=== PATIENT | female | born 1955 | race African-American/Black ===

== ENCOUNTER → 2016-12-29 | Outpatient (CLI) | payer BC ==
[2016-12-29 09:34] LABS: ANION GAP 14 (5-19); BLOOD UREA NITROGEN 12 mg/dL (7-20); CALCIUM 10.3 mg/dL (8.4-10.2); CARBON DIOXIDE 26 mmol/L (22-30); CHLORIDE 110 mmol/L (98-107); CREATININE RESULT 0.93 mg/dL (0.52-1.25); GLUCOSE 99 mg/dL (75-110); POTASSIUM 3.9 mmol/L (3.6-5.0); SODIUM 150.3 mmol/L (137-145)
[2016-12-31 11:40] LABS: CREATININE URINE 80.4 mg/dL (Not Estab.)
== END ==
LOC: LAB 07:18
PROVIDERS: ATTEND Internal Medicine Nephrology
DX: R80.9 Proteinuria, unspecified (principal); I10 Essential (primary) hypertension
CPT/HCPCS: 36415; 80048; 82570; 84156

== ENCOUNTER 2017-01-17 19:38 | Emergency (ER) | payer BC ==
[2017-01-17] MEDS ORDERED: DIPH/PERTUSS(ACELL)/TETANUS VAC/PF 0.5 ML SYR (>=10YO) IM ONE (20:12)
[2017-01-17 21:16] VITALS: BP 123/79
--- NOTE | 2017-01-17 21:17 | ER Document Report ---
HPI - HPI Patient complains to provider of: laceration Pain Level: 3 Context: Patient is a 61-year-old female presents emergency Department with a left hand injury. Patient states that she was cutting brownies when the knife slipped and landed on the left palmar aspect of her hand. Tetanus is not up-to-date. Minimal bleeding. - REPRODUCTIVE LMP: na - DERM Skin Color: Normal Past Medical History - Social History Smoking Status: Unknown if Ever Smoked Family History: Reviewed & Not Pertinent Patient has suicidal ideation: No Patient has homicidal ideation: No - Past Medical History Cardiac Medical History: Reports: Hx Hypertension Denies: Hx Coronary Artery Disease, Hx Heart Attack Pulmonary Medical History: Reports: Hx Asthma, Hx Bronchitis, Hx COPD Denies: Hx Pneumonia Neurological Medical History: Denies: Hx Cerebrovascular Accident, Hx Seizures Renal/ Medical History: Denies: Hx Peritoneal Dialysis Musculoskeltal Medical History: Reports Hx Arthritis Past Surgical History: Denies: Hx Hysterectomy - Immunizations Hx Diphtheria, Pertussis, Tetanus Vaccination: - UNSURE Vertical Provider Document - CONSTITUTIONAL Agree With Documented VS: Yes Exam Limitations: No Limitations General Appearance: WD/WN, No Apparent Distress - INFECTION CONTROL TRAVEL OUTSIDE OF THE [place] IN LAST 30 DAYS: No - RESPIRATORY O2 Sat by Pulse Oximetry: 98 - CARDIOVASCULAR Pulses: Normal: Radial - capillary refill less than 2 seconds in all upper extremity digits - MUSCULOSKELETAL/EXTREMETIES Musculoskeletal/Extremeties: MAEW, FROM, Non-Tender, No Edema. negative: Eccymosis - NEURO Level of Consciousness: Awake, Alert, Appropriate Motor/Sensory: No Motor Deficit, No Sensory Deficit - DERM Integumentary: Laceration - Palmar aspect injury. 2 cm in length that any injury to muscle. Course - Re-evaluation Re-evalutation: 01/17/17 21:15 Lack was closed with Steri-Strips and dressed with Telfa and Kerlix. Tetanus status updated. Primary care as needed - Vital Signs Vital signs: Temp Pulse Resp BP Pulse Ox 97.5 F 81 18 146/84 H 98 01/17/17 19:43 01/17/17 19:43 01/17/17 19:43 01/17/17 19:43 01/17/17 19:43 Discharge - Discharge Clinical Impression: Laceration Condition: Good Disposition: HOME, SELF-CARE Instructions: Non-Sutured Laceration ([facility]), Tetanus Immunization Given ([facility]) Forms: Elevated Blood Pressure Referrals: KAE QUAN MD [Primary Care Provider] - Follow up as needed
== END 2017-01-17 20:35 | disposition home or self-care (01) ==
LOC: ER 19:38
DX: S69.92XA Unspecified injury of left wrist, hand and finger(s), initial encounter (principal); W26.0XXA Contact with knife, initial encounter; Y92.000 Kitchen of unspecified non-institutional (private) residence as the place of occurrence of the external cause; I10 Essential (primary) hypertension; Z23 Encounter for immunization
CPT/HCPCS: 90715; 99282

== ENCOUNTER → 2017-07-05 | Outpatient (CLI) | payer BC ==
[2017-07-05 10:02] LABS: ALBUMIN 4.3 g/dL (3.5-5.0); ANION GAP 12 (5-19); BLOOD UREA NITROGEN 24 mg/dL (7-20); CARBON DIOXIDE 26 mmol/L (22-30); CHLORIDE 105 mmol/L (98-107); CREATININE RESULT 1.11 mg/dL (0.52-1.25); GLUCOSE 87 mg/dL (75-110); POTASSIUM 4.4 mmol/L (3.6-5.0)
[2017-07-05 10:04] LABS: URINE CREATININE 103.8 mg/dL (15-278); URINE PROTEIN 11.8 mg/dL (<12)
== END ==
LOC: LAB 08:41
PROVIDERS: ATTEND Internal Medicine Nephrology
DX: R80.9 Proteinuria, unspecified (principal); I10 Essential (primary) hypertension
CPT/HCPCS: 80048; 82040; 82570; 84156

== ENCOUNTER → 2017-09-16 | Outpatient (CLI) | payer BC ==
[2017-09-16 16:05] LABS: ANION GAP 13 (5-19); BLOOD UREA NITROGEN 13 mg/dL (7-20); CALCIUM 9.9 mg/dL (8.4-10.2); CARBON DIOXIDE 26 mmol/L (22-30); CHLORIDE 106 mmol/L (98-107); CREATININE RESULT 1.04 mg/dL (0.52-1.25); GLUCOSE 84 mg/dL (75-110); POTASSIUM 3.8 mmol/L (3.6-5.0); SODIUM 145.1 mmol/L (137-145)
== END ==
LOC: OD 14:42
PROVIDERS: ATTEND Internal Medicine Nephrology
DX: E83.52 Hypercalcemia (principal); I10 Essential (primary) hypertension
CPT/HCPCS: 36415; 80048